=== PATIENT | male | born 1960 | race African-American/Black ===

== ENCOUNTER 2022-05-17 07:29 | Emergency (ER) | payer MEDICAID ==
[~2022-05-17] VITALS: Ht 167.6 cm; Wt 80.0 kg
[2022-05-17 08:26] LABS: CHLORIDE 109 mEq/L (98-107)
[2022-05-17 08:36] LABS: BASOPHILS % 0.5 % (0.0-2.0); EOSINOPHILS % 0.2 % (0.0-5.0); HEMATOCRIT. 43.8 % (42.0-52.0); HEMOGLOBIN. 14.1 g/dL (14.0-18.0); LYMPHOCYTES % 28.9 % (20.0-50.0); MEAN CORPUSCULAR HEMOGLOBIN 30.7 pg (28.0-32.0); MEAN CORPUSCULAR VOLUME 95.2 fL (80.0-94.0); MEAN PLATELET VOLUME 8.9 fl (7.4-10.4); NEUTROPHILS % 63.4 % (40.0-76.0); PLATELET 215 x1000/uL (130-400); RED CELL DISTRIBUTION WIDTH 16.6 % (11.6-14.6)
[2022-05-17] MEDS ORDERED: ASPIRIN 325MG EC TABLET PO ONE (09:00)
[2022-05-17] MEDS ORDERED: FUROSEMIDE 40MG/4ML VIAL IVP SCH (09:00)
[2022-05-17 19:40] VITALS: BP 126/91
== END 2022-05-17 20:55 | disposition left against medical advice (07) ==
LOC: ER 07:51 → CANBEDREQ 13:03 → ER 20:55 → CANBEDREQ 21:09
DX: I11.0 Hypertensive heart disease with heart failure (principal); I50.9 Heart failure, unspecified; E78.00 Pure hypercholesterolemia, unspecified; Z20.822 Contact with and (suspected) exposure to COVID-19
CPT/HCPCS: 36415; 71045; 80053; 83880; 84484; 85025; 87426; 93005; 94660; 96374; 99291; C9803; J1940; Z7610